=== PATIENT | female | born 1945 | race Caucasian/White ===

== ENCOUNTER 2017-09-13 04:35 | Inpatient (IN) | payer MEDICARE, OTHER ==
[2017-09-13] MEDS ORDERED: Magnesium Sulfate 2 GM/100 ML BAG ONE (04:43)
[2017-09-13] MEDS ORDERED: Albuterol Sulfate 2.5 mg/3 ml Neb ONE (04:45)
[2017-09-13] MEDS ORDERED: Albuterol Sulfate 2.5 mg/0.5 ml Neb ONE ×2 (04:45)
[2017-09-13 05:07] LABS: #Basophils 0.1 thou/uL (0.0-0.2); #Eosinphils 0.2 thou/uL (0.0-0.7); #Lymphocytes 1.7 thou/uL (1.20-3.40); #Monocytes 0.5 thou/uL (0.11-0.59); #Neutrophils 7.1 thou/uL (1.40-6.50); %Basophils 0.7 % (0.0-1.0); %Eosinophils 2.1 % (0.0-10.0); %Lymphocytes 17.4 % (21.0-51.0); %Neutrophils 74.9 % (42.0-75.0); Hemoglobin 10.3 g/dL (12.0-16.0); Mean Corpuscular HGB CONC 31.7 g/dL (32.0-36.0); Mean Corpuscular Hemoglobin 24.2 pg (27.0-31.0); Mean Corpuscular Volume 76.3 fl (81.0-99.0); Platelet Count 367 thou/uL (130-400); RBC Distribution Width 16.4 % (11.5-14.5); Red Blood Cell (RBC) Count 4.27 mill/uL (4.20-5.40); White Blood Cell (WBC) Count 9.5 thou/uL (4.8-10.8)
[2017-09-13 05:13] LABS: Prothrombin Time 13.7 SEC (12.0-14.7)
[2017-09-13 05:14] LABS: PTT 31.7 SEC (22.9-36.1)
[2017-09-13 05:18] LABS: ALT (SGPT) 8 U/L (8-55); AST (SGOT) 12 U/L (5-34); Albumin 3.6 g/dL (3.4-4.8); Alkaline Phosphatase 73 U/L (40-150); Anion Gap 12 mmol/L (10-20); BUN (Urea Nitrogen) 19 mg/dL (9.8-20.1); Bilirubin, Total 0.2 mg/dL (0.2-1.2); Calc. Creatinine Clearance 0 mL/min (70-130); Calcium 8.8 mg/dL (7.8-10.44); Carbon Dioxide 26 mmol/L (23-31); Chloride 104 mmol/L (98-107); Estimated GFR-MDRD 43; Globulin 4.2 g/dL (2.4-3.5); Glucose 188 mg/dL (83-110); Potassium 4.3 mmol/L (3.5-5.1); Protein, Total 7.8 g/dL (6.0-8.3); Sodium 138 mmol/L (136-145)
[2017-09-13 05:23] LABS: CKMB 0.9 ng/mL (0-6.6); Troponin I 0.035 ng/mL (< 0.028)
[2017-09-13] MEDS ORDERED: Furosemide 40 MG/4 ML VIAL ONE (08:20)
--- NOTE | 2017-09-13 09:16 | RAD ---
CHEST 1 VIEW: Date: 09/13/17 HISTORY: Dyspnea. Kidney cancer. COMPARISON: 05/29/13. FINDINGS: Cardiac silhouette is magnified, enlarged, and partially obscured by bilateral pleural fluid and dens e bibasilar infiltrates. Mediastinum is midline with aortic calcification. Pulmonary vasculature is e ngorged. residential monitor leads overlie the chest. IMPRESSION: 1. Bilateral pleural fluid and bibasilar infiltrates are favored to be related to CHF given the card iomegaly and pulmonary vascular congestion. 2. Atherosclerosis. POS: TIP
[2017-09-13] MEDS ORDERED: Nitroglycerin 2% Ointment 1 INCH/1 GM Packet ONE (09:46)
[2017-09-13] MEDS ORDERED: Azithromycin 500 MG VIAL ONE (09:46)
[2017-09-13 09:54] LABS: CK (CPK) 26 U/L (29-168); Lipase 10 U/L (8-78)
[2017-09-13 10:01] LABS: Troponin I 0.031 ng/mL (< 0.028)
[2017-09-13 11:13] LABS: Bilirubin Negative (Negative); Blood, Urine Large (Negative); Clarity CLOUDY (Clear); Glucose, Urine (Dipstick) Negative (Negative); Leukocyte Moderate (Negative); Nitrite Negative (Negative); Protein, Urine (Dipstick) 100 mg/dL (Neg-Trace); Specific Gravity, Urine 1.009 (1.002-1.036); Urobilinogen 0.2 mg/dL (0.2-1.0); pH, Urine 5.5 (5.0-9.0)
[2017-09-13 11:15] LABS: Hyaline Casts/LPF 0-3 HYALINE CAST LPF (0-3 Hyaline); Pathc Cast-AUWi Flag 0.72 (0-2.49); Squamous Epithelial 0-3 HPF (0-3)
[2017-09-13 11:18] LABS: Yeast-AUWi Flag 49.7 (0-25.0)
[2017-09-13 11:28] LABS: Bacteria/HPF 1+ HPF (None Seen); RBC/HPF GREATER THAN 50-TNTC HPF (0-3); Yeast-All Forms None Seen HPF (None Seen)
[2017-09-13] MEDS ORDERED: Ondansetron HCl/PF 4 MG/2 ML Vial IVP PRN ×2 (12:07→12:19)
[2017-09-13] MEDS ORDERED: Ondansetron ODT 4 MG TAB SL PRN (12:07)
[2017-09-13] MEDS ORDERED: Acetaminophen 325 MG TAB PO PRN (12:19)
[2017-09-13] MEDS ORDERED: Zolpidem Tartrate 5 MG TAB PO PRN (12:19)
[2017-09-13] MEDS ORDERED: Dextrose 5% in Water 1,000 ML IV PRN (12:19)
[2017-09-13] MEDS ORDERED: Dextrose 50% Abboject 50 ML SYRINGE SLOW IVP PRN (12:19)
[2017-09-13] MEDS ORDERED: Bisacodyl 5 MG TAB PO PRN (12:19)
[2017-09-13 12:22] VITALS: BMI 30.4
[2017-09-13 12:58] LABS: Troponin I 0.024 ng/mL (< 0.028)
--- NOTE | 2017-09-13 14:13 | HP ---
HISTORY OF PRESENT ILLNESS: Ms. Quezada is a 71-year-old old woman. [facility] complaint of shortness of breath, which she has been experimenting for the last wee k or so and which has been in increasing in intensity. This morning, she developed acute respiratory failure and needed BiPAP. Patient was discharged to another facility where she was presented for si milar problem about 1 week ago. She denies any associated chest pain. She denies any fever. She morocho s been experiencing some dry cough. PAST MEDICAL HISTORY AND SURGICAL HISTORY: Remarkable for hypertension, diabetes mellitus, CHF, COPD , and chronic kidney disease and also she was diagnosed with renal cell carcinoma in the past and she required a right partial nephrectomy. She also had a pathological fracture in her left arm from thi s renal cell carcinoma, which required surgery. Spinal cord tumor removal many years ago. ALLERGIES: She has allergy to BENADRYL, CEPHALEXIN, CEPO, DIPHENHYDRAMINE, LISINOPRIL, METFORMIN, NI TROFURANTOIN and DOXYLAMINE. SOCIAL HISTORY: She is a formed smoker. She quit smoking about 5 years ago. She denies ETOH abuse. She denies drug abuse. FAMILY HISTORY: Reviewed and is not contributory. MEDICATIONS: Prior to admission, she was on Bactrim-DS, Lasix, aspirin 81 mg daily, Levemir, amlodip ine, oxybutynin, carvedilol, clonazepam, Prilosec, Compazine, glipizide, gabapentin, and fluticasone and she claims that she was compliant to her medications. REVIEW OF SYSTEMS: Constitutional: Admits to generalized weakness. Denies any fever. HEENT: No h eadache, no ocular pain, no sore throat, no rhinorrhea, no earache, no epistaxis. Neck: No neck cezar n, no neck stiffness. Cardiovascular: Admits to shortness of breath. No chest pain. Pulmonary: A dmits to dry cough. Gastrointestinal: No nausea, no vomiting, no diarrhea, no abdominal pain. Yuly tourinary: No dysuria, no hematuria. Endocrinology: No heat or cold intolerance. No polyuria, fabiano ydipsia or polyphagia. Musculoskeletal: Denies arthralgia, denies myalgia. Hematology: No abnorma l bleeding, no ecchymosis. Lymphatics: No palpable lymphadenopathy, no painful lymphadenopathy. Sk in: No rash, no itching. Allergies: No hayfever. Neurological: No seizure. Psychiatric: Admits to anxiety, depression. PHYSICAL EXAMINATION: GENERAL: At the current time, she is alert, oriented, receiving oxygen via BiPAP. VITAL SIGNS: Temperature of 97.8, pulse rate 88, respiratory rate 24, blood pressure 132/92. HEENT: Her head is normocephalic and atraumatic. Her pupils are equal, reactive. Ears and nose are ariane l. Oral mucosa is moist. Pharyngeal area is clear. NECK: Supple. There is no distention of the jugular vein. No lymphadenopathy felt. Thyroid gland not palpable. There is no carotid bruit. CHEST: Symmetrical with regular S1, S2. LUNGS: Show rales at both lungs field and there is some decreased air entry at the right base. ABDOMEN: Soft. Bowel sounds heard. We could not appreciate any organomegaly. EXTREMITIES: Limbs showed no edema. NEUROLOGIC: She moves all extremities. LABORATORY DATA AND X-RAY FINDINGS: CBC drawn earlier showed WBC of 9.5, hemoglobin of 10.3, hematoc rit of 32.6, MCV of 76.3, platelet 367. PT was noticed to be 13.7, PTT 31.7. Chemistry and electrol ytes show sodium of 138, potassium 4.3, chloride 104, CO2 26, BUN 19, creatinine 1.22, glucose 188, c alcium 8.8, magnesium 2, total bilirubin 0.2, AST 12, ALT 8, alkaline phosphatase 73. CPK 26, tropon in was noticed to be mildly elevated at 0.035. Repeat troponin is 0.031. BNP is 492.7, albumin 3.6, lipase 0.9. Chest x-ray was reported to show bilateral pleural effusion and pulmonary vascular vikash estion. ASSESSMENT AND PLAN: This is a 71-year-old woman with history of hypertension, diabetes me llitus, chronic obstructive pulmonary disease, congestive heart failure, chronic kidney disease who c valerie in with increasing shortness of breath, found to be in respiratory distress. At this time, she h as acute on chronic respiratory failure secondary to combination of congestive heart failure and sleeve baster dao obstructive pulmonary disease. We will start her on Lasix, carvedilol and Aldactone. She report ed history of allergy to LISINOPRIL. In view of this fact, we will not use TALHA inhibitor. We will a lso start on vasodilator and steroids. She will be admitted to IMCU. She will be on Lovenox for kirill p venous thrombosis prophylaxis. Further evaluation and management will depend on the course of the hospitalization and her response to therapy.
[2017-09-13] MEDS: Furosemide 20 MG/2 ML VIAL SLOW IVP SCH (14:21)
[2017-09-13] MEDS: Insulin Regular 300 UNITS/3 ML VIAL SC PRN ×2 (16:32→21:04)
[2017-09-13] MEDS: Carvedilol 6.25 MG TAB PO SCH (16:33)
[2017-09-13] MEDS: Spironolactone 25 MG TAB PO SCH (16:34)
[2017-09-13] MEDS: Mometasone/Formoterol 120 PUFF INHALER INH SCH (18:58)
[2017-09-13] MEDS ORDERED: Famotidine/PF 20 mg/2ml Vial SLOW IVP SCH (21:00)
[2017-09-13] MEDS ORDERED: Dexamethasone 10 MG/ML VIAL SLOW IVP SCH (21:00)
[2017-09-13] MEDS ORDERED: Furosemide 40 MG/4 ML VIAL SLOW IVP SCH (21:00)
[2017-09-13] MEDS: Atorvastatin Calcium 40 MG TAB PO SCH (21:03)
[2017-09-13] MEDS: Famotidine 20 MG TAB PO SCH (21:03)
--- NOTE | 2017-09-13 21:26 | CON ---
DATE OF ADMISSION: 09/13/2017 DATE OF CONSULTATION: 09/13/2017 INDICATION FOR CONSULTATION: A 71-year-old female with a history of diastolic heart failure, COPD, h istory of renal cell carcinoma with partial nephrectomy, history of diabetes, hypertension. We were asked to see her due to a CHF exacerbation. HISTORY OF PRESENT ILLNESS: This is a very unfortunate 71-year-old female who has multitude of medic al problems. She has been recently admitted to [facility] a couple weeks ago where she spent 1 week in the hospital, she was just discharged about a week ago. At that time, she had a wor kup for multiple things, but she says that they decided that her problems were not cardiac related. However, she does have a history of diastolic dysfunction. She has respiratory failure. She smoked in the past and has COPD. Her respiratory failure, improved after she had a BiPAP mask placed. She was discharged and then was at home and doing relatively well. She has been going on eating and then yesterday developed more problems became significantly short of breath and required further repeat h ospitalization. She was brought to [facility]. Since being in the hospital, she has remain ed on oxygen, but appears to be doing better. Her renal function also has been relatively stable wit h a creatinine of 1.22. She is somewhat anemic with hemoglobin of 10.3. Her cardiac enzymes were in determinate and have started trending down peak was 0.035, is now down to 0.024. Echocardiogram has not been performed. Her BNP was slightly elevated at 492, but not enough that one would feel that th is is significant CHF exacerbation. This certainly could be diastolic heart failure. When she was s een in the emergency room, apparently she does have shortness of breath and was wheezing. At this ti me, she is feeling much better and appears to be stable from cardiac standpoint at that time. At thi s time, her EKG shows a normal sinus rhythm with decreased R-wave progression in the inferior and als o anterior leads; and cannot completely rule out an old inferior or anterior myocardial infarction, b ut this may be her baseline. We will need to obtain the records from [facility] to see exactly what workup was performed and also to evaluate for possible EKG changes. PAST MEDICAL HISTORY: Significant for renal cell carcinoma for which she underwent a partial right n ephrectomy. She has a history of hypertension, diabetes, COPD, diastolic dysfunction and heart failu re. She has chronic kidney disease. She has been seen by tourist information officer. She has had back surgery du e to some type of benign spinal cord tumor and since that time she has had some problems in the left lower extremity. She has also had a fracture of the left arm, most likely due to her renal cell carc inoma. She does have a history of hypertension, diabetes. SOCIAL HISTORY: She smoked in the past. She stopped about 5 years ago. She has no alcohol use. Sen phillip is . She denied any illicit drug use. ALLERGIES: She is allergic to CEPHALEXIN, CIPRO, DIPHENHYDRAMINE, BENADRYL, LISINOPRIL, NITROFURANTO IN, DOXYLAMINE and METFORMIN. PRESENT MEDICATIONS: Include aspirin, atorvastatin, Coreg, Klonopin, dexamethasone, Lovenox, Pepcid, furosemide. She is now getting 40 mg IV b.i.d. She is also on Amaryl, albuterol and ipratropium in [facility], methylprednisolone, Aldactone 25 mg b.i.d., and other p.r.n. medications. REVIEW OF SYSTEMS: Mainly, she complains of shortness of breath. She complains of weakness. She morocho s weakness also in the lower extremity. She has had a recent coughing, which exacerbated her shortne ss of breath, perhaps she had no abdominal pain. She denied any complaints or urinalysis does ameya w hematuria. She denies any significant lower extremity edema. She walks with a walker. Otherwise, 12 point review of systems unremarkable. It has known history of present illness. PHYSICAL EXAMINATION: GENERAL: Reveals an elderly female. VITAL SIGNS: Blood pressure is 131/71, heart rate is 86 and regular, respiratory rate is 18. She is afebrile. HEENT: Shows head to be normocephalic and atraumatic. She has bilateral carotid bruits. The right upstroke is somewhat diminished. She has bilateral carotid bruits, left being greater than the right . LUNGS: Chest has decreased breath sounds, but did not hear any rales, rhonchi, or wheezing at this t nora, but she does have decreased breath sounds and certainly the bases. There are some decreased laxmi ath sounds bilaterally. CARDIOVASCULAR: Reveals a regular rate and rhythm. She has normal S1, S2. I cannot hear an S3 nor an S4. ABDOMEN: Shows obesity with positive bowel sounds. No guarding or masses are noted. EXTREMITIES: Bilateral femoral bruits are present. Pulses are present. Decreased on the left side. The left pop liteal pulses are barely palpable. The right seemed to be within normal limits. I cannot palpate pe tutu pulses very well. I could not palpate any pedal pulses on the left foot, some slightly decreased on the right foot. SKIN: Warm and dry. There was no significant lower extremity edema at this time. IMPRESSION: 1. Chronic obstructive pulmonary disease exacerbation with multiple other medical problems. She alexandrea l be continued on the oxygen. 2. History of congestive heart failure, which is diastolic in nature. She has been drinking increas ed amounts of fluid at home was not aware that she needs to curtail her fluid intake. We will need t o watch this and when she is diuresed, we will need education about how to deal with her diastolic dy sfunction. We will need to obtain the echocardiogram was performed at [facility], if one was no t done within the last week or two and I would suggest a repeat the echocardiogram. She did have a h istory of diastolic dysfunction in the past with normal systolic function. 3. Diabetes. This will be dealt with rather primary care service. 4. Peripheral vascular disease. She is unaware that she had any peripheral vascular disease. On physical examination, she has significant problems. I would suggest she undergo a carotid Doppler and also possibly outpatient evaluation of the lower extremity arteries by arteriogram. Next, histor y of hypertension, this is under good control at this time. We will be more than happy to continue to follow the patient with you, but further recommendations, w e will depend on the records that we obtained from [facility] rather than repeating further stud ies that have already been just recently performed.
[2017-09-14] MEDS: Furosemide 20 MG/2 ML VIAL SLOW IVP SCH ×2 (04:52→14:56)
[2017-09-14 05:33] LABS: Anion Gap 11 mmol/L (10-20); BUN (Urea Nitrogen) 25 mg/dL (9.8-20.1); Calc. Creatinine Clearance 58 mL/min (70-130); Calcium 8.5 mg/dL (7.8-10.44); Carbon Dioxide 27 mmol/L (23-31); Chloride 100 mmol/L (98-107); Estimated GFR-MDRD 44; Glucose 301 mg/dL (83-110); Sodium 134 mmol/L (136-145)
[2017-09-14] MEDS: Insulin Regular 300 UNITS/3 ML VIAL SC PRN ×3 (06:18→17:31)
[2017-09-14] MEDS: Mometasone/Formoterol 120 PUFF INHALER INH SCH ×2 (06:30→18:28)
--- NOTE | 2017-09-14 07:57 | RAD ---
CHEST 1 VIEW: Date: 09/14/17 HISTORY: Dyspnea. COMPARISON: 09/13/17. FINDINGS: Cardiac silhouette is magnified and enlarged. Pulmonary vasculature remains engorged. Pulmonary vascu lar congestion, bibasilar infiltrates, and bilateral pleural fluid are similar in appearance to the p rior exam. Mediastinum is midline with aortic calcification. No evidence of pneumothorax. IMPRESSION: Radiographic findings of pulmonary edema and other findings are stable. POS: [facility]
[2017-09-14] MEDS ORDERED: tiZANidine HCl 4 MG TAB PO PRN (09:00)
[2017-09-14] MEDS: Carvedilol 6.25 MG TAB PO SCH ×2 (09:57→17:29)
[2017-09-14] MEDS: Spironolactone 25 MG TAB PO SCH ×2 (09:57→17:30)
[2017-09-14] MEDS: Enoxaparin Sodium 40 MG/0.4 ML SYRINGE SC SCH (09:58)
[2017-09-14] MEDS: Famotidine 20 MG TAB PO SCH ×2 (09:58→20:40)
[2017-09-14] MEDS: Glimepiride 2 MG TAB PO SCH (09:58)
[2017-09-14] MEDS: clonazePAM 0.5 MG TAB PO SCH (09:59)
[2017-09-14] MEDS ORDERED: Gabapentin 300 MG CAP PO SCH (10:45)
--- NOTE | 2017-09-14 11:10 | CON ---
DATE OF CONSULTATION: 09/13/2017 HISTORY OF PRESENT ILLNESS: Natali Quezada is a 71-year-old female who sees multiple doctors at [facility], presented to the hospital with acute shortness of breath, heaviness in the chest symptoms, coughing, and wheezing. She had a similar episode several weeks ago. She went to the ER at [facility] where she was given a breathing treatment at discharge. Shehas history of tobacco abuse. She said she quit smoking several years ago. She has extensive lab work, but a procedure done at [facility], which she has had on a computer states that she has got diastolic dysfunction, metastatic ovarian carcinoma. Recent chest x-ray shows bilateral pleural effusion. Recent CAT scan shows a hilar, subcarinal multiple pulmonary nodules, bilateral pleural effusion, no more than a month ago. She brought her whole list of medicine from home. The patient had numerous procedures last year for her metastatic renal cancer. She has had a previous history of pneumonia, but no history of TB, no known history of asthma. On most days, she can walk maybe a block without getting marked short of breath. PAST MEDICAL HISTORY: Metastatic renal carcinoma, extensive surgical intervention, mets to the bone of the lung. She received chemotherapy, but apparently got some reaction, which is on hold now. History of diabetes, hypertension, history of prior chronic lung disease. PAST SURGICAL HISTORY: Spinal surgery done for tumor benign, right partial nephrectomy, left arm surgery, hysterectomy, back surgery. MEDICATIONS: Her list of medicine from home includes tizanidine 4 mg, clonazepam 0.5, Medrol, lisinopril 10, omeprazole 40, DuoNeb, Amaryl 2, Neurontin 300, budesonide, Zithromax, amlodipine. ALLERGIES: KEFLEX, CIPRO, LISINOPRIL, METFORMIN. SOCIAL HISTORY: negative FAMILY HISTORY: Unremarkable. REVIEW OF SYSTEMS: Ten-point negative. PHYSICAL EXAMINATION: GENERAL: She is awake, alert and responsive. She is on the BiPAP. She says she is feeling better. VITAL SIGNS: Sats are 94% on 4 liters, temperature 98, pulse 88, blood pressure 154/78. CHEST: Bilateral crackles, no wheezing. CARDIAC: Normal S1, S2, no gallops. ABDOMEN: Soft. No masses. LABORATORY AND X-RAY FINDINGS: White count 9000, H&H 10 and 30, platelet count 367. Creatinine 1.2. BNP is 492. IMAGING: X-ray shows bilateral pleural effusion. IMPRESSION: 1. Respiratory failure secondary to diastolic dysfunction. 2. Metastatic renal cancer to the lung, bone. 3. Recent chemotherapy with multiple side effects, so it has been discontinued. 4. Chronic pain. 5. Obesity. PLAN: The patient was seen in the ER by the admitting physician and started on multiple medications, which include nebulizer treatments, steroids, diuretics which are continued. Regarding the pleural effusion, this is probably from diastolic dysfunction, possibly due to metastatic disease. Though, she has improved, hopefully we can stabilize her and transfer her back to [facility]. Pulmonary will follow. We will try and get input from Cardiology. This is a consultation note, 70-minute of which 50% in direct patient care. RIKY
--- NOTE | 2017-09-14 11:38 | PDOC.PN ---
- Subjective Encounter Start Date: 09/14/17 Encounter Start Time: 11:00 Subjective: Feels better. -: On O2 via N/C - Objective Resuscitation Status: Resuscitation Status FULL:Full Resuscitation Vital Signs & Weight: Vital Signs (12 hours) Temp Pulse Resp BP Pulse Ox 09/14/17 10:54 89 20 96 09/14/17 08:08 97.7 F 100 20 147/80 H 99 09/14/17 08:00 98.3 F 101 H 19 97 09/14/17 06:47 101 H 19 97 09/14/17 06:44 104 H 19 97 09/14/17 03:58 97.3 F L 84 17 110/59 L 97 09/14/17 01:54 92 18 95 09/14/17 00:28 98.0 F 83 16 111/73 97 Weight Weight 197 lb 1 oz I&O: 09/13/17 09/14/17 09/15/17 06:59 06:59 06:59 Intake Total 1230 Output Total 2925 Balance -1695 Result Diagrams: 09/13/17 05:02 09/14/17 04:24 Additional Labs: Accuchecks 09/14/17 09/14/17 09/13/17 10:31 05:50 20:26 POC Glucose 344 H 328 H 334 H 09/13/17 16:23 POC Glucose 357 H Phys Exam - Physical Examination Constitutional: NAD HEENT: sclera anicteric Neck: no JVD Respiratory: clear to auscultation bilateral Cardiovascular: RRR Gastrointestinal: soft Musculoskeletal: no edema Neurological: moves all 4 limbs Psychiatric: A&O x 3 Dx/Plan (1) CHF (congestive heart failure) Code(s): I50.9 - HEART FAILURE, UNSPECIFIED Status: Acute Comment: improving.. (2) COPD exacerbation Code(s): J44.1 - CHRONIC OBSTRUCTIVE PULMONARY DISEASE W (ACUTE) EXACERBATION Status: Acute Comment: improving.. (3) HTN (hypertension) Code(s): I10 - ESSENTIAL (PRIMARY) HYPERTENSION Status: Acute Comment: BP satisfactory.. (4) Diabetes Code(s): E11.9 - TYPE 2 DIABETES MELLITUS WITHOUT COMPLICATIONS Status: Acute Plan: Resume Levemir. Continue sliding scale. Comment: BS has been high. (5) CKD (chronic kidney disease) Code(s): N18.9 - CHRONIC KIDNEY DISEASE, UNSPECIFIED Status: Chronic Comment : stable - Plan -: Overall condition is better,. -: Continue current therapy. -: f/u with consultants. * .
--- NOTE | 2017-09-14 13:55 | PRG ---
DATE OF SERVICE: 09/14/2017 SUBJECTIVE: This morning, she is awake, alert and responsive. She is still short of breath. OBJECTIVE: VITAL SIGNS: Sats are 99% on 4 liters, temperature is 97 and blood pressure 147/80. I's and O's are 1230 in, 2925 out. CHEST: Decreased breath sounds bilaterally. CARDIAC: Normal S1 and S2. No gallops. ABDOMEN: Soft. No masses. LABORATORY DATA: White count is 10. Creatinine 1.2. IMAGING DATA: X-ray still shows bilateral pleural effusion and diffuse infiltrates. ASSESSMENT: Metastatic renal cancer, congestive heart failure and bilateral pleural effusion. PLAN: Continue Lasix. Supportive care and neb treatments. We will follow.
[2017-09-14] MEDS: Gabapentin 300 MG CAP PO SCH ×2 (15:24→20:40)
[2017-09-14] MEDS: Insulin Detemir 100 UNITS/ML 30 UNITS in Pre-Filled Syringe 1 EACH SC SCH (20:40)
[2017-09-14] MEDS: Atorvastatin Calcium 40 MG TAB PO SCH (20:40)
[2017-09-15] MEDS: Furosemide 20 MG/2 ML VIAL SLOW IVP SCH (06:13)
[2017-09-15] MEDS: Insulin Regular 300 UNITS/3 ML VIAL SC PRN ×4 (06:16→20:25)
[2017-09-15] MEDS: Mometasone/Formoterol 120 PUFF INHALER INH SCH ×2 (07:32→19:14)
--- NOTE | 2017-09-15 07:48 | RAD ---
SINGLE VIEW OF THE CHEST: COMPARISON: 09/14/17. HISTORY: Ventilated patient with respiratory failure. FINDINGS: A single view of the chest shows an enlarged but stable cardiomediastinal silhouette. There is a sma ll left pleural effusion. There may also be a small right pleural effusion. No significant change w hen compared to the prior exam. IMPRESSION: Cardiomegaly with small bilateral pleural effusions. POS: [facility]
[2017-09-15] MEDS: Gabapentin 300 MG CAP PO SCH ×3 (08:25→20:18)
[2017-09-15] MEDS: Famotidine 20 MG TAB PO SCH ×2 (08:25→20:18)
[2017-09-15] MEDS: Carvedilol 6.25 MG TAB PO SCH ×2 (08:26→17:08)
[2017-09-15] MEDS: Glimepiride 2 MG TAB PO SCH (08:26)
[2017-09-15] MEDS: Enoxaparin Sodium 40 MG/0.4 ML SYRINGE SC SCH (08:26)
[2017-09-15] MEDS: Spironolactone 25 MG TAB PO SCH ×2 (08:26→17:08)
[2017-09-15] MEDS: clonazePAM 0.5 MG TAB PO SCH (08:26)
[2017-09-15] MEDS: Insulin Detemir 100 UNITS/ML 30 UNITS in Pre-Filled Syringe 1 EACH SC SCH ×2 (08:28→20:19)
--- NOTE | 2017-09-15 09:40 | PRG ---
DATE OF SERVICE: 09/15/2017 She is much better this morning. X-ray looks much improved on her bilateral pleural effusion. PHYSICAL EXAMINATION: VITAL SIGNS: Sats are 97% on 2 liters, respirations 20. Pulse 100, temperature 99, blood pressure 1 32/82. CHEST: Chest revealed decreased breath sounds, left greater than right. Minimal crackles. CARDIAC: Normal S1, S2. No gallops. ABDOMEN: Soft, no masses. Blood sugar is 240. IMPRESSION: 1. Congestive heart failure, diastolic dysfunction. 2. Metastatic cancer. 3. Severe deconditioning. PLAN: Switch over to oral medication. Await input from Cardiology. Hopefully, she can be discharge d home in the next 24-48 hours.
--- NOTE | 2017-09-15 11:51 | PQF ---
DATE: 09-15-17 ATTN: DR. PRIYA QUINTERO Please exercise your independent, professional judgment in responding to the clarification form. Clinical indicators are provided on the bottom of this form for your review Please check appropriate box(s): [ ] UTI [x] Contaminated urine specimen without UTI [ ] Other diagnosis [ ] Unable to determine In addition, please specify: Present on Admission (POA): [ ] Yes [ ] No [ ] Unable to determine For continuity of documentation, please document condition throughout progress notes and discharge summary. Thank You. CLINICAL INDICATORS - SIGNS / SYMPTOMS / LABS URINE: 09-13-17: URINE PROTEIN: 100 H URINE BLOOD: LARGE H UR LEUKOCYTE ESTERASE: MODERATE H URINE RBC: GREATER THAN 50 - TNTC H URINE WBC: 7-10 H URINE BACTERIA: 1+ H RISK FACTORS: ER DOCUMENTATION: SOB, C/O DYSPNEA, HX OF [place], COPD, FORMER TOBACCO USE, DM 2, HTN CONSULT NOTE DR. BALL 09-15-17: SEVERE DECONDITIONING, METASTATIC CANCER TREATMENT: (ER) AZITHROMYCIN (ER ) WHITAKER CATHETER INSERTED (This form is maintained as a part of the permanent medical record) 2014 [employer] All Rights Reserved [email or web address] Office: [phone] [facility]
--- NOTE | 2017-09-15 12:07 | PQF ---
DATE: 09-15-17 ATTN: DR. PRIYA QUINTERO Please exercise your independent, professional judgment in responding to the clarification form. Clinical indicators are provided on the bottom of this form for your review Please check appropriate box(s): [ ] Acute Renal Failure (ARF) / Acute Kidney Injury (LIZZ) [ ] Acute on Chronic Renal Failure please specify Stage of CKD (see below) [ ] CKD without ARF/LIZZ please specify Stage of CKD [ ] Other diagnosis [ ] Unable to determine In addition, please specify: Present on Admission (POA): [ ] Yes [ ] No [ ] Unable to determine National Kidney Foundation Guidelines for CKD Staging Stage I Kidney damage with normal or increased GFR GFR > 90 Stage II Kidney damage with mildly decreased GFR GFR 60-89 Stage III Kidney damage with moderately decreased GFR GFR 30-59 Stage IV Kidney damage with severely decreased GFR GFR 16-29 Stage V Kidney failure GFR<15 ESRD End Stage Renal Disease On dialysis Acute Renal Failure/Acute Kidney Failure defined as: Increases in SCr by (>) 0.3 mg/dl within 48 hours OR- Increases in SCr by (>) 1.5 times baseline, known or presumed to have occurred within the prior 7 days OR- Urine volume < 0.5 ml/kg/hour for 6 hours (KDIGO supplement 2012 for RIFLE/VALENTE criteria) For continuity of documentation, please document condition throughout progress notes and discharge summary. Thank You. CLINICAL INDICATORS - SIGNS / SYMPTOMS / LABS H&P: HX OF CHRONIC KIDNEY DISEASE AND ALSO SHE WAS DIAGNOSED WITH RENAL CELL CARCINOMA IN THE PAST AND SHE REQUIRED A RIGHT PARTIAL NEPHRECTOMY. PN 09-14-17: CKD GFR: 09-13-17: 43 09-14-16: 44 CREATININE: 18: 1.22 09-14-17: 1.21 BUN: 09-13-17: 19 09-14-17: 25 RISK FACTORS: H&P: HX OF CHRONIC KIDNEY DISEASE AND ALSO SHE WAS DIAGNOSED WITH RENAL CELL CARCINOMA IN THE PAST AND SHE REQUIRED A RIGHT PARTIAL NEPHRECTOMY. TREATMENTS: ( ER) MAGNESIUM SULFATE IN WATER SERIES OF LABS (This form is maintained as a part of the permanent medical record) 2014 [email or web address]. All Rights Reserved [email or web address] Office: [phone] [email or web address]
--- NOTE | 2017-09-15 16:10 | PDOC.CTH ---
<Marisol Suggs - Last Filed: 09/15/17 16:05> Cardiology Progress Note - Subjective The pt seen and examined. No overnight events. No cardiac complaints. - Objective Vital Signs Temp Pulse Pulse Pulse Resp BP BP 09/15/17 15:11 76 20 09/15/17 14:00 88 83 132/73 149/84 H 09/15/17 11:22 97.5 F L 102 H 20 09/15/17 10:37 102 H 20 09/15/17 07:51 99.2 F 101 H 20 09/15/17 07:45 99.2 F 101 H 20 09/15/17 07:31 106 H 20 BP Pulse Ox 09/15/17 15:11 93 L 09/15/17 14:00 09/15/17 11:22 147/83 H 99 09/15/17 10:37 98 09/15/17 07:51 97 09/15/17 07:45 139/82 97 09/15/17 07:31 97 Weight 189 lb 5 oz 09/14/17 09/15/17 09/16/17 06:59 06:59 06:59 Intake Total 1230 1040 720 Output Total 2925 2850 Balance -1695 -1810 720 - Physical Examination General/Neuro: alert & oriented x3 Neck: no JVD present Lungs: other: (diminished and coaase at bases) Heart: RRR Abdomen: soft Extremities: other: (No edema) - Telemetry Telemetry Rhythm: SR - Labs Result Diagrams: 09/13/17 05:02 09/14/17 04:24 Troponin/CKMB CK-MB (CK-2) 0.9 ng/mL (0-6.6) 09/13/17 05:02 Troponin I 0.024 ng/mL (< 0.028) 09/13/17 12:28 - Assessment/Plan 1. Acute on Chronic diastolic HF - Echo on 09/14/17 showed EF 60-65%, mild dilated LA, mod-severe MR, and mild TR. Stable with BBlocker, Lasix, Spironolactone and ASA, but no TALHA due to CKD. 2. COPD exacerbation - stable with 2LNC; she does not have Home O2. 3. HTN - stable with current medication 4. DM type 2 - managed by PCP 5. CKD with Hx of Renal carcinoma - stable 6. Hperlipidemia - on statin MAR reviewed * Education of Fluid and restriction and compression stockings given to the pt and . Review of Systems - Review of Systems Constitutional: reports: no symptoms reported EENTM: reports: no symptoms reported Respiratory: reports: no symptoms reported Cardiac (ROS): reports: no symptoms reported ABD/GI: reports: no symptoms reported : reports: no symptoms reported Musculoskeletal: reports: no symptoms reported <Mike Marte - Last Filed: 09/15/17 16:30> Cardiology Progress Note - Objective Vital Signs Temp Pulse Pulse Pulse Resp BP BP 09/15/17 16:00 97.6 F 73 20 09/15/17 15:11 76 20 09/15/17 14:00 88 83 132/73 149/84 H 09/15/17 11:22 97.5 F L 102 H 20 09/15/17 10:37 102 H 20 09/15/17 07:51 99.2 F 101 H 20 09/15/17 07:45 99.2 F 101 H 20 09/15/17 07:31 106 H 20 BP Pulse Ox 09/15/17 16:00 149/71 H 98 09/15/17 15:11 93 L 09/15/17 14:00 09/15/17 11:22 147/83 H 99 09/15/17 10:37 98 09/15/17 07:51 97 09/15/17 07:45 139/82 97 09/15/17 07:31 97 Weight 189 lb 5 oz 09/14/17 09/15/17 09/16/17 06:59 06:59 06:59 Intake Total 1230 1040 720 Output Total 2925 2850 Balance -1695 -1810 720 - Labs Result Diagrams: 09/13/17 05:02 09/14/17 04:24 Troponin/CKMB CK-MB (CK-2) 0.9 ng/mL (0-6.6) 09/13/17 05:02 Troponin I 0.024 ng/mL (< 0.028) 09/13/17 12:28 - Assessment/Plan Pt. seen and eval. by me. I agree with the A/P by the [employer]. She has been abulating. The family says that the O2 sats decrease when she ambulates and when she is sleeping. The cardiac status is stable. From my perspective she can be d/c'd.
[2017-09-15] MEDS: Atorvastatin Calcium 40 MG TAB PO SCH (20:18)
[2017-09-15] MEDS: guaiFENesin ER 600 MG TAB PO SCH (20:18)
--- NOTE | 2017-09-15 22:34 | PDOC.PN ---
- Subjective Encounter Start Date: 09/15/17 Encounter Start Time: 19:00 Patient seen and examined. No new complaints. No overnight events - Objective Resuscitation Status: Resuscitation Status FULL:Full Resuscitation MAR Reviewed: Yes Vital Signs & Weight: Vital Signs (12 hours) Temp Pulse Pulse Pulse Resp BP BP 09/15/17 20:00 98.0 F 105 H 17 09/15/17 19:44 98.0 F 105 H 17 09/15/17 19:16 09/15/17 19:15 09/15/17 19:14 106 H 09/15/17 16:00 97.6 F 73 20 09/15/17 15:11 76 20 09/15/17 14:00 88 83 132/73 149/84 H 09/15/17 11:22 97.5 F L 102 H 20 09/15/17 10:37 102 H 20 BP Pulse Ox 09/15/17 20:00 94 L 09/15/17 19:44 144/79 H 94 L 09/15/17 19:16 93 L 09/15/17 19:15 93 L 09/15/17 19:14 93 L 09/15/17 16:00 149/71 H 98 09/15/17 15:11 93 L 09/15/17 14:00 09/15/17 11:22 147/83 H 99 09/15/17 10:37 98 Weight Weight 189 lb 5 oz I&O: 09/14/17 09/15/17 09/16/17 06:59 06:59 06:59 Intake Total 1230 1040 1320 Output Total 2925 2850 1550 Balance -1695 -1810 -230 Result Diagrams: 09/16/17 04:39 09/16/17 04:39 Additional Labs: Accuchecks 09/15/17 09/15/17 09/15/17 20:26 16:43 10:45 POC Glucose 318 H 278 H 347 H 09/15/17 06:17 POC Glucose 240 H EKG Reviewed by me: Yes (Tele SR) Phys Exam - Physical Examination Constitutional: NAD Respiratory: no wheezing, no rhonchi Cardiovascular: RRR, no rub Gastrointestinal: soft, non-tender, positive bowel sounds Musculoskeletal: edema present (trace) Dx/Plan - Plan DVT proph w/SCDs IMPRESSION: 1. Acute hypoxic resp failure due to Acute on chronic diastolic HF - improving 2. LIZZ/CKD 2 due to cardiorenal syndrome - improving 3. Elevated troponins due to demand ischemia 4. HTN/HLD 5. Other issues per previous notes PLAN: * Cont diuretics * Cardio/Pulm following * AM labs * Cont to monitor * DC planning * CXR in AM per Pulmonary * Cont current meds as below Cont to monitor Review of Systems - Review of Systems Respiratory: negative: Cough, Dry, Shortness of Breath, Hemoptysis, SOB with Excertion, Pleuritic Pain, Sputum, Wheezing Cardiovascular: negative: chest pain, palpitations, orthopnea, paroxysmal nocturnal dyspnea, edema, light headedness, other - Medications/Allergies Allergies/Adverse Reactions: Allergies Allergy/AdvReac Type Severity Reaction Status Date / Time diphenhydramine HCl Allergy Intermediate Verified 05/27/13 12:00 [From Benadryl] cephalexin [From Keflex] Allergy Hives Verified 09/13/17 12:00 ciprofloxacin Allergy DIZZY Verified 09/13/17 12:03 doxylamine Allergy Anaphylaxis Verified 09/13/17 12:03 lisinopril Allergy SWELLING Verified 09/13/17 12:03 metformin Allergy Diarrhea Verified 09/13/17 12:03 nitrofurantoin Allergy TONGUE Verified 09/13/17 12:03 SWELLING Medications: Current Medications Acetaminophen (Tylenol) 650 mg PO Q4H PRN PRN Reason: Headache/Fever or Pain Last Admin: 09/14/17 11:34 Dose: 650 mg Albuterol/Ipratropium (Duoneb) 3 ml NEB [id number] [facility] Last Admin: 09/15/17 19:15 Dose: 3 ml Aspirin (Aspirin Chewable) 81 mg PO DAILY [facility] Last Admin: 09/15/17 08:26 Dose: 81 mg Atorvastatin Calcium (Lipitor) 40 mg PO HS [facility] Last Admin: 09/15/17 20:18 Dose: 40 mg Bisacodyl (Dulcolax) 10 mg PO DAILYPRN PRN PRN Reason: Constipation Carvedilol (Coreg) 12.5 mg PO BID-WM [facility] Last Admin: 09/15/17 17:08 Dose: 12.5 mg Clonazepam (Klonopin) 0.5 mg PO DAILY [facility] Last Admin: 09/15/17 08:26 Dose: 0.5 mg Dextrose/Water (Dextrose 50%) 25 gm SLOW IVP PRN PRN PRN Reason: Hypoglycemia Enoxaparin Sodium (Lovenox) 40 mg SC 0900 [facility] Last Admin: 09/15/17 08:26 Dose: 40 mg Famotidine (Pepcid) 20 mg PO BID [facility] Last Admin: 09/15/17 20:18 Dose: 20 mg Furosemide (Lasix) 40 mg PO DAILY-[facility] Gabapentin (Neurontin) 600 mg PO TID [facility] Last Admin: 09/15/17 20:18 Dose: 600 mg Glimepiride (Amaryl) 2 mg PO DAILY [facility] Last Admin: 09/15/17 08:26 Dose: 2 mg Glucagon (Glucagon) 1 mg IM PRN PRN PRN Reason: Hypoglycemia Guaifenesin (Mucinex) 600 mg PO Q12HR [facility] Last Admin: 09/15/17 20:18 Dose: 600 mg Dextrose/Water (D5w) 1,000 mls @ 0 mls/hr IV .Q0M PRN; As Directed PRN Reason: Hypoglycemia Insulin Detemir 30 units/ (Miscellaneous Medication) 0.3 mls @ 0 mls/hr SC BID [facility] PRN Reason: As Directed Last Admin: 09/15/17 20:19 Dose: 0.3 mls Insulin Human Regular (Humulin R) 0 units SC .MODERATE SLIDING SC PRN PRN Reason: Moderate Correctional Scale Last Admin: 09/15/17 20:25 Dose: 8 unit Mometasone Furoate/Formoterol Fumar (Dulera 200 Mcg/5 Mcg Inhaler) 2 puff INH BID-RT [facility] Last Admin: 09/15/17 19:14 Dose: 2 puff Ondansetron HCl (Zofran) 4 mg IVP Q6H PRN PRN Reason: Nausea/Vomiting Prednisone (Prednisone) 20 mg PO QAM-[facility] Sodium Chloride (Flush - Normal Saline) 10 ml IVF Q12HR [facility] Last Admin: 09/15/17 20:19 Dose: 10 ml Sodium Chloride (Flush - Normal Saline) 10 ml IVF PRN PRN PRN Reason: Saline Flush Spironolactone (Aldactone) 25 mg PO BID-[facility] Last Admin: 09/15/17 17:08 Dose: 25 mg Tizanidine HCl (Zanaflex) 4 mg PO DAILY PRN PRN Reason: RESTLESS LEGS Zolpidem Tartrate (Ambien) 5 mg PO HSPRN PRN PRN Reason: Insomnia
[2017-09-16 05:25] LABS: Albumin 3.5 g/dL (3.4-4.8); Anion Gap 10 mmol/L (10-20); BUN (Urea Nitrogen) 30 mg/dL (9.8-20.1); Calc. Creatinine Clearance 69 mL/min (70-130); Calcium 8.8 mg/dL (7.8-10.44); Carbon Dioxide 31 mmol/L (23-31); Chloride 103 mmol/L (98-107); Estimated GFR-MDRD 55; Glucose 130 mg/dL (83-110); Magnesium 2.2 mg/dL (1.6-2.6); Phosphorus 2.5 mg/dL (2.3-4.7); Potassium 3.5 mmol/L (3.5-5.1); Sodium 140 mmol/L (136-145)
[2017-09-16 05:26] LABS: #Basophils 0.1 thou/uL (0.0-0.2); #Lymphocytes 2.2 thou/uL (1.20-3.40); #Monocytes 0.8 thou/uL (0.11-0.59); #Neutrophils 7.1 thou/uL (1.40-6.50); %Basophils 0.6 % (0.0-1.0); %Eosinophils 0.2 % (0.0-10.0); %Lymphocytes 21.9 % (21.0-51.0); %Monocytes 7.8 % (0.0-10.0); %Neutrophils 69.6 % (42.0-75.0); Hemoglobin 10.7 g/dL (12.0-16.0); Mean Corpuscular HGB CONC 32.3 g/dL (32.0-36.0); Mean Corpuscular Hemoglobin 24.5 pg (27.0-31.0); Mean Corpuscular Volume 75.9 fl (81.0-99.0); Mean Platelet Volume 7.1 fL (7.4-10.4); Platelet Count 356 thou/uL (130-400); RBC Distribution Width 16.6 % (11.5-14.5); Red Blood Cell (RBC) Count 4.38 mill/uL (4.20-5.40); White Blood Cell (WBC) Count 10.2 thou/uL (4.8-10.8)
[2017-09-16] MEDS ORDERED: Furosemide 40 MG TAB PO SCH (07:30)
[2017-09-16] MEDS ORDERED: predniSONE 20 MG TAB PO SCH (08:00)
[2017-09-16] MEDS: Mometasone/Formoterol 120 PUFF INHALER INH SCH (08:07)
--- NOTE | 2017-09-16 08:14 | RAD ---
SINGLE VIEW OF THE CHEST: COMPARISON: 09/15/17. HISTORY: Ventilated patient with chest pain. FINDINGS: A single view of the chest shows an enlarged cardiomediastinal silhouette. This is stable in size. There is obscurity of the left hemidiaphragm which may represent a small left pleural effusion. No c hange has occurred compared to the prior exam. IMPRESSION: Small left pleural effusion. POS: [facility]
[2017-09-16] MEDS: Carvedilol 6.25 MG TAB PO SCH (08:29)
[2017-09-16] MEDS: Spironolactone 25 MG TAB PO SCH (08:30)
[2017-09-16] MEDS: guaiFENesin ER 600 MG TAB PO SCH (08:30)
[2017-09-16] MEDS: clonazePAM 0.5 MG TAB PO SCH (08:30)
[2017-09-16] MEDS: Glimepiride 2 MG TAB PO SCH (08:30)
[2017-09-16] MEDS: Gabapentin 300 MG CAP PO SCH (08:30)
[2017-09-16] MEDS: Famotidine 20 MG TAB PO SCH (08:30)
[2017-09-16] MEDS: Enoxaparin Sodium 40 MG/0.4 ML SYRINGE SC SCH (08:31)
--- NOTE | 2017-09-16 08:35 | PDOC.CTH ---
Cardiology Progress Note - Subjective The pt seen and examined. No overnight events. No cardiac complaints. She is on RA without any resp. distress. CHF educator will educate the pt and family about CHF and management later today. - Objective Vital Signs Temp Pulse Resp BP Pulse Ox 09/16/17 08:08 95 09/16/17 08:06 72 16 95 09/16/17 07:57 98.9 F 79 18 94 L 09/16/17 07:05 98.9 F 79 18 150/76 H 94 L 09/16/17 04:00 98.6 F 70 17 152/66 H 93 L 09/16/17 02:44 92 L 09/16/17 00:00 98.5 F 81 16 144/73 H 92 L 09/15/17 22:49 92 L Weight 189 lb 8 oz 09/15/17 09/16/17 09/17/17 06:59 06:59 06:59 Intake Total 1040 1570 Output Total 2850 2450 Balance -1810 -880 - Physical Examination General/Neuro: alert & oriented x3 Neck: no JVD present Lungs: CTA (diminished at bases, but better than yesterday) Heart: RRR Abdomen: soft Extremities: other: (SR) - Labs Result Diagrams: 09/16/17 04:39 09/16/17 04:39 Troponin/CKMB CK-MB (CK-2) 0.9 ng/mL (0-6.6) 09/13/17 05:02 Troponin I 0.024 ng/mL (< 0.028) 09/13/17 12:28 - Assessment/Plan 1. Acute on Chronic diastolic HF - Echo on 09/14/17 showed EF 60-65%, mild dilated LA, mod-severe MR, and mild TR. Stable with BBlocker, Lasix, Spironolactone and ASA, but no TALHA due to CKD and allergy. 2. COPD exacerbation - stable with RA; she does not have Home O2. 3. HTN - stable with current medication 4. DM type 2 - managed by PCP 5. CKD with Hx of Renal carcinoma - stable 6. Hperlipidemia - on statin MAR reviewed * From Cardiac standpoint, the pt is stable to d/c home. She will f/u with at [facility] referred by her PCP. Review of Systems - Review of Systems Constitutional: reports: no symptoms reported EENTM: reports: no symptoms reported Respiratory: reports: no symptoms reported Cardiac (ROS): reports: no symptoms reported ABD/GI: reports: no symptoms reported : reports: no symptoms reported Musculoskeletal: reports: no symptoms reported
--- NOTE | 2017-09-16 08:43 | PRG ---
DATE OF SERVICE: 09/16/2017 She is much better this morning, less short of breath. PHYSICAL EXAMINATION: VITAL SIGNS: Sats are 96 on room air, respiration rate 18, temperature 98, blood pressure 150/76. CHEST: Chest reveals decreased breath sounds without any crackles. CARDIAC: Normal S1, S2. ABDOMEN: Soft, no mass. LABORATORY: White count 10,000. H&H 10 and 30. Electrolytes are normal. X-ray shows a small left pleural effusion, the right pleural effusion is pretty much resolved. IMPRESSION: 1. Diastolic dysfunction. 2. Bilateral pleural effusion. 3. Respiratory failure. 4. Metastatic cancer. PLAN: From a pulmonary standpoint of view she can be discharged home. Follow up with her physicians at [facility].
[2017-09-16] MEDS: Insulin Detemir 100 UNITS/ML 30 UNITS in Pre-Filled Syringe 1 EACH SC SCH (09:56)
[2017-09-16 11:29] VITALS: BP 152/89; TEMP 99.2
--- NOTE | 2017-09-17 10:00 | DIS ---
DATE OF ADMISSION: 09/13/2017 DATE OF DISCHARGE: 09/16/2017 DISCHARGE DISPOSITION: Home. FOLLOWUP: Follow up with primary care physician, Dr. Lee in one week. The patient was seen and examined on the day of discharge. Denies any new complaints, no chest pain, shortness of breath or palpitations. [facility] will be resumed. DISCHARGE MEDICATIONS: 1. Aspirin 81 mg daily. 2. Lipitor 40 mg at bedtime. 3. Carvedilol 25 mg b.i.d. 4. Clonazepam as needed. 5. Advair 2 inhalations twice a day. 6. Lasix 40 mg daily. 7. Gabapentin 600 mg 3 times a day. 8. Glipizide 5 mg b.i.d. 9. Levemir 30 units b.i.d. 10. DuoNeb as needed. 11. Oxybutynin 10 mg daily. 12. Prednisone 10 mg daily for the next 4 days. 13. Aldactone 25 mg twice a day. 14. Bactrim 1 tablet b.i.d. (patient was on Bactrim for urinary tract infection prior to admission). INPATIENT CONSULTANTS: 1. Cardiology, Dr. Marte. 2. Pulmonary, Dr. Groves. BRIEF HOSPITAL COURSE: The patient is a 71-year-old female with hypertension, diabetes mellitus type 2, chronic obstructive pulmonary disease, congestive heart failure, and renal cell carcinoma, presen ambika to the emergency room with shortness of breath. Please refer to the history and physical dated 0 09/13/2017 for further details. The patient was admitted to the intermediate care unit with a diagnosis of respiratory failure requir ing noninvasive positive pressure ventilation. The patient showed good response with diuretics. Ech ocardiogram showed left ventricular ejection fraction of 60%-65% with left ventricular hypertrophy, m oderate to severe mitral regurgitation, mild tricuspid regurgitation. The left atrium was mildly dil ated. Right atrium size was normal. There was mild thickening of the posterior leaflet of the jared l valve. The patient was seen by Cardiology, Dr. Marte, and Pulmonary, Dr. Groves. Patient has been cl eared by the above consultants for discharge. FINAL DIAGNOSES: 1. Acute on chronic diastolic heart failure. 2. Acute hypoxic respiratory failure secondary to #1. 3. Acute kidney injury on chronic kidney disease stage 2 secondary to cardiorenal syndrome. Creatin ine on admission was 1.22, at discharge was 0.99. 4. Elevated troponins secondary to demand ischemia. 5. Chronic obstructive pulmonary disease exacerbation. 6. Hypertension. 7. Diabetes mellitus type 2. 8. History of renal cell carcinoma. 9. Hyperlipidemia. Plan of care was discussed with the patient and the family in detail. They stated understanding. A repeat base met after 1 week is recommended. Primary care physician is advised to follow. SIGNIFICANT LABORATORY DATA: BNP was 492. Maximum troponin was 0.035. WBC was 9.5 with hemoglobin of 10.3. Urine culture was negative. X-RAY FINDINGS: Chest x-ray on admission showed bilateral pleural fluids and pulmonary vascular vikash estion with cardiomegaly. Plan of care was discussed with the patient and the family in detail. They stated understanding.
--- NOTE | 2017-10-24 15:50 | EKG ---
Test Reason : Blood Pressure : / mmHG Vent. Rate : 071 BPM Atrial Rate : 071 BPM P-R Int : 162 ms QRS Dur : 090 ms QT Int : 436 ms P-R-T Axes : 047 -26 095 degrees QTc Int : 473 ms Normal sinus rhythm Inferior infarct , age undetermined Anterior infarct , age undetermined Abnormal ECG Confirmed by YURY CHENEY D.O. ([id number]), marketing editor TARIK CHOI ([id number]) on 10/24/2017 3:50:03 PM Referred By: Confirmed By:YURY CHENEY D.O.
== END 2017-09-16 12:18 | disposition home or self-care (01) | DRG 291 ==
LOC: ERS 04:35 → IMCU/EMU 10:29
PROVIDERS: ADMIT Internal Medicine; ATTEND Internal Medicine
PROC: 5A09357 Assistance with Respiratory Ventilation, Less than 24 Consecutive Hours, Continuous Positive Airway Pressure (ICD-10-PCS; principal; 2017-09-14)
DX: I13.0 Hypertensive heart and chronic kidney disease with heart failure and stage 1 through stage 4 chronic kidney disease, or unspecified chronic kidney disease (principal); J96.21 Acute and chronic respiratory failure with hypoxia; I50.33 Acute on chronic diastolic (congestive) heart failure; N17.9 Acute kidney failure, unspecified; J44.1 Chronic obstructive pulmonary disease with (acute) exacerbation; I24.8 Other forms of acute ischemic heart disease; C79.51 Secondary malignant neoplasm of bone; C78.00 Secondary malignant neoplasm of unspecified lung; E11.22 Type 2 diabetes mellitus with diabetic chronic kidney disease; N18.2 Chronic kidney disease, stage 2 (mild); E78.5 Hyperlipidemia, unspecified; Z85.528 Personal history of other malignant neoplasm of kidney; Z87.891 Personal history of nicotine dependence; Z92.21 Personal history of antineoplastic chemotherapy; Z88.1 Allergy status to other antibiotic agents; Z88.8 Allergy status to other drugs, medicaments and biological substances; Z79.82 Long term (current) use of aspirin; Z79.4 Long term (current) use of insulin; Z79.899 Other long term (current) drug therapy; Z90.5 Acquired absence of kidney
CPT/HCPCS: 36415; 36416; 51702; 71045; 80048; 80053; 80069; 81003; 81015; 82553; 83690; 83735; 83880; 84484; 85025; 85610; 85730; 87086; 93005; 93306; 94640; 94660; 96365; 96375; G8978-GP-CJ; G8979-GP-CJ; G8980-GP-CJ; J0456; J1100; J1815; J1940; J3475; J7611; J7620